=== PATIENT | male | born 1965 | race Caucasian/White ===

== ENCOUNTER 2024-03-03 03:18 | Inpatient (IN) | payer OTHER ==
[2024-03-03 04:11] VITALS: BMI 28.8
[2024-03-03] MEDS ORDERED: Ondansetron PF 4 MG/2 ML Vial IVP PRN (04:16)
[2024-03-03 05:11] LABS: #Basophils 0.03 10x3/uL (0.0-0.2); #Eosinphils Less than 0.03 10x3/uL (0.0-0.7); %Basophils 0.3 % (0.0-1.0); %Lymphocytes 2.8 % (21.0-51.0); %Monocytes 5.4 % (0.0-10.0); %Neutrophils 91.2 % (42.0-75.0); Hematocrit 41.5 % (42.0-52.0); Hemoglobin 13.7 g/dL (14.0-18.0); Mean Corpuscular Hemoglobin 29.3 pg (27.0-31.0); Mean Corpuscular Volume 88.7 fL (78.0-98.0); Mean Platelet Volume 9.6 fL (7.4-10.4); Platelet Count 222 10x3/uL (130-400); RBC Distribution Width 12.9 % (11.5-14.5); Red Blood Cell (RBC) Count 4.68 mill/uL (4.70-6.10)
[2024-03-03] MEDS: Vancomycin (BATCH) 2 GM in Premix 1 BAG IVPB SCH (05:24)
[2024-03-03 05:35] LABS: Anion Gap 9 mmol/L (10-20); BUN (Urea Nitrogen) 14 mg/dL (8.4-25.7); Calc. Creatinine Clearance 96 mL/min (70-130); Calcium 8.4 mg/dL (7.8-10.44); Carbon Dioxide 24 mmol/L (22-29); Chloride 109 mmol/L (98-107); Estimated GFR 86; Glucose 119 mg/dL (70-105); Potassium 4.3 mmol/L (3.5-5.1); Sodium 138 mmol/L (136-145)
[2024-03-03] MEDS ORDERED: Sodium Bicarbonate 0.5 MEQ/ML SDV 10 ML ONE (08:41)
[2024-03-03 11:13] LABS: CSF Source CSF; Clarity Clear (Clear); Tube # 4
[2024-03-03] MEDS ORDERED: Ampicillin 2 GM VIAL ONE (11:29)
[2024-03-03] MEDS ORDERED: Sodium Chloride 0.9% 100 ML ONE (11:29)
[2024-03-03 11:39] LABS: CSF, Protein 55.3 mg/dL (15-40)
[2024-03-03] MEDS: Ampicillin 2 GM in Sodium Chloride 0.9% 100 ML IVPB SCH (11:52)
[2024-03-03] MEDS: ACYCLOVIR SODIUM IVPB SCH (13:00)
[2024-03-03] MEDS: SODIUM CHLORIDE 0.9% IVPB SCH (13:00)
[2024-03-03] MEDS: Sodium Chloride 0.9% 1,000 ML IV SCH (13:28)
[2024-03-03] MEDS: cefTRIAXone\\ROCEPHIN 2 GM in Sodium Chloride 0.9% 100 ML IVPB SCH (13:33)
[2024-03-03] MEDS: Vancomycin HCl 750 MG in Sodium Chloride 0.9% 250 ML 250 ML IVPB SCH (14:57)
[2024-03-03] MEDS ORDERED: SODIUM CHLORIDE 0.9% IVPB SCH (16:00)
[2024-03-03] MEDS ORDERED: ACYCLOVIR SODIUM IVPB SCH (16:00)
[2024-03-03] MEDS: Azithromycin 250 MG TAB PO SCH ×3 (18:04→21:44)
[2024-03-03 20:17] LABS: Bacteria/HPF None Seen HPF (None Seen); Bilirubin Negative (Negative); Blood, Urine 1+ (Negative); CAUTI Indications for Culture Fever or rigors; Clarity Clear (Clear); Glucose, Urine (Dipstick) >=1000 mg/dL (Negative); Ketone, Urine Negative (Negative); Leukocyte Negative Leu/uL (Negative); Nitrite Negative (Negative); Protein, Urine (Dipstick) Negative (Neg-Trace); Specific Gravity, Urine 1.016 (1.002-1.036); Squamous Epithelial None Seen HPF (0-3); Urobilinogen Normal mg/dL (Less than 2); WBC/HPF 0-3 HPF (0-3)
[2024-03-03 20:18] LABS: Urine Culture Reflex No No
[2024-03-03 20:30] LABS: Legionella Urinary Ag Negative (Negative); Strep pneumo Urine Ag NEGATIVE (NEGATIVE)
[2024-03-03] MEDS: traMADol HCl 50 MG TAB PO PRN (21:27)
[2024-03-04 05:01] LABS: #Basophils Less than 0.03 10x3/uL (0.0-0.2); #Eosinphils Less than 0.03 10x3/uL (0.0-0.7); %Basophils 0.1 % (0.0-1.0); %Lymphocytes 10.9 % (21.0-51.0); %Monocytes 13.3 % (0.0-10.0); %Neutrophils 75.2 % (42.0-75.0); Hematocrit 37.3 % (42.0-52.0); Hemoglobin 12.5 g/dL (14.0-18.0); Mean Corpuscular HGB CONC 33.5 g/dL (32.0-36.0); Mean Corpuscular Hemoglobin 29.6 pg (27.0-31.0); Mean Corpuscular Volume 88.4 fL (78.0-98.0); Mean Platelet Volume 10.1 fL (7.4-10.4); Platelet Count 187 10x3/uL (130-400); RBC Distribution Width 12.9 % (11.5-14.5); Red Blood Cell (RBC) Count 4.22 mill/uL (4.70-6.10)
[2024-03-04 05:27] LABS: Vancomycin, Random 12.9 ug/mL (See Comment)
[2024-03-04 05:31] LABS: Anion Gap 10 mmol/L (10-20); BUN (Urea Nitrogen) 15 mg/dL (8.4-25.7); Calc. Creatinine Clearance 126 mL/min (70-130); Calcium 8.4 mg/dL (7.8-10.44); Carbon Dioxide 22 mmol/L (22-29); Chloride 114 mmol/L (98-107); Estimated GFR 103; Glucose 120 mg/dL (70-105); Potassium 3.8 mmol/L (3.5-5.1); Sodium 142 mmol/L (136-145)
[2024-03-04] MEDS: Ampicillin 2 GM in Sodium Chloride 0.9% 100 ML IVPB SCH (08:48)
[2024-03-04] MEDS: Vancomycin (BATCH) 1.5 GM in Premix 1 BAG IVPB SCH (12:26)
[2024-03-04] MEDS: cefTRIAXone\\ROCEPHIN 2 GM in Sodium Chloride 0.9% 100 ML IVPB SCH (14:50)
[2024-03-05] MEDS: Acetaminophen 325 MG TAB PO PRN (05:21)
[2024-03-05 06:15] LABS: #Basophils 0.04 10x3/uL (0.0-0.2); %Basophils 0.4 % (0.0-1.0); %Eosinophils 0.9 % (0.0-10.0); %Lymphocytes 22.8 % (21.0-51.0); %Monocytes 10.8 % (0.0-10.0); %Neutrophils 64.5 % (42.0-75.0); Hematocrit 38.8 % (42.0-52.0); Hemoglobin 13.2 g/dL (14.0-18.0); Mean Corpuscular Hemoglobin 29.6 pg (27.0-31.0); Mean Platelet Volume 9.9 fL (7.4-10.4); Platelet Count 210 10x3/uL (130-400); RBC Distribution Width 12.9 % (11.5-14.5); Red Blood Cell (RBC) Count 4.46 mill/uL (4.70-6.10)
[2024-03-05 06:45] LABS: Vancomycin, Random 11.9 ug/mL (See Comment)
[2024-03-05 06:55] LABS: ALT (SGPT) 26 U/L (8-55); AST (SGOT) 12 U/L (5-34); Albumin 3.1 g/dL (3.5-5.0); Alkaline Phosphatase 64 U/L (40-110); Anion Gap 14 mmol/L (10-20); BUN (Urea Nitrogen) 12 mg/dL (8.4-25.7); Bilirubin, Total 0.2 mg/dL (0.2-1.2); Calc. Creatinine Clearance 115 mL/min (70-130); Calcium 8.7 mg/dL (7.8-10.44); Carbon Dioxide 25 mmol/L (22-29); Chloride 105 mmol/L (98-107); Estimated GFR 100; Globulin 3.3 g/dL (2.4-3.5); Glucose 95 mg/dL (70-105); Potassium 3.5 mmol/L (3.5-5.1); Protein, Total 6.4 g/dL (6.0-8.3); Sodium 140 mmol/L (136-145)
[2024-03-05 12:16] VITALS: BP 113/72; TEMP 98.6
== END 2024-03-05 13:58 | disposition home or self-care (01) | DRG 195 ==
LOC: ERHOLD 03:18 → 2NO 12:31
PROVIDERS: ADMIT Internal Medicine; ATTEND Internal Medicine
PROC: 009U3ZX Drainage of Spinal Canal, Percutaneous Approach, Diagnostic (ICD-10-PCS; principal; 2024-03-03)
PROC: B01B1ZZ Fluoroscopy of Spinal Cord using Low Osmolar Contrast (ICD-10-PCS; 2024-03-03)
DX: J18.9 Pneumonia, unspecified organism (principal); F31.9 Bipolar disorder, unspecified; F43.10 Post-traumatic stress disorder, unspecified; F17.290 Nicotine dependence, other tobacco product, uncomplicated; I95.9 Hypotension, unspecified; Z79.899 Other long term (current) drug therapy; Z98.890 Other specified postprocedural states; Z83.3 Family history of diabetes mellitus
CPT/HCPCS: 36415; 62270; 70450; 71045; 80048; 80053; 80202; 81001; 82945; 83605; 84145; 84157; 85025; 87040; 87070; 87081; 87205; 87449; 87633; 87899; 89051; 96365; 96366; 96367; 96375; J0133; J0290; J0696; J0780; J1100; J1200; J1885; J3010; J3370; J7030; J7050